=== PATIENT | female | born 1990 | race Caucasian/White ===

== ENCOUNTER 2017-11-06 03:09 | Emergency (ER) | payer OTHER | END 2017-11-06 03:59 | disposition home or self-care (01) | LOC: FTE 03:09 | DX: T80.818A Extravasation of other vesicant agent, initial encounter (principal); F17.210 Nicotine dependence, cigarettes, uncomplicated; Y82.8 Other medical devices associated with adverse incidents | CPT/HCPCS: 99283; Z7502 ==